=== PATIENT | male | born 1990 | race African-American/Black ===

== ENCOUNTER 2020-12-30 13:13 | Emergency (ER) | payer OTHER ==
[~2020-12-30] VITALS: Ht 200.7 cm; Wt 97.0 kg
[2020-12-30] MEDS ORDERED: ONDANSETRON 4MG ODT PO STA (13:31)
[2020-12-30] MEDS ORDERED: MAGNESIUM/ALUMINUM HYDROXIDE/SIMETHICONE 30ML UDC PO STA (13:31)
[2020-12-30] MEDS ORDERED: FAMOTIDINE 20MG TABLET PO ONE (13:45)
[2020-12-30 14:07] LABS: BASOPHILS % 0.4 % (0.0-2.0); EOSINOPHILS % 0.1 % (0.0-5.0); HEMATOCRIT. 49.4 % (42.0-52.0); HEMOGLOBIN. 17.1 g/dL (14.0-18.0); LYMPHOCYTES % 12.4 % (20.0-50.0); MEAN CORPUSCULAR HEMOGLOBIN 31.3 pg (28.0-32.0); MEAN CORPUSCULAR VOLUME 90.5 fL (80.0-94.0); MEAN PLATELET VOLUME 8.3 fl (7.4-10.4); MONOCYTES % 9.5 % (2.0-8.0); NEUTROPHILS % 77.6 % (40.0-76.0); PLATELET 227 x1000/uL (130-400); RED BLOOD CELL COUNT 5.46 mill/uL (4.7-6.1); RED CELL DISTRIBUTION WIDTH 14.5 % (11.6-14.6)
[2020-12-30 14:12] LABS: CLARITY URINE CLEAR (CLEAR); COLOR URINE DARK YELLOW (YELLOW); KETONES URINE TRACE (NEGATIVE); LEUKOCYTE ESTERASE URINE NEGATIVE (NEGATIVE); NITRITE URINE NEGATIVE (NEGATIVE); OCCULT BLOOD URINE 2+ (NEGATIVE); PROTEIN URINE 3+ (NEGATIVE); SPECIFIC GRAVITY URINE 1.051 (1.005-1.030); UROBILINOGEN URINE 0.2 E.U./dL (0.2-1.0)
[2020-12-30 14:18] LABS: CHLORIDE 108 mEq/L (98-107)
[2020-12-30 14:28] LABS: *BARBITURATES SCREEN URINE NEGATIVE (NEGATIVE); *BENZODIAZEPINES SCREEN URINE NEGATIVE (NEGATIVE); *COCAINE SCREEN URINE NEGATIVE (NEGATIVE); METHADONE URINE SCREEN NEGATIVE (NEGATIVE); OPIATES URINE SCREEN PRESUMTIVE POSITIVE (NEGATIVE)
[2020-12-30 14:29] LABS: *AMPHETAMINES SCREEN URINE NEGATIVE (NEGATIVE); CANNABINOID URINE SCREEN PRESUMTIVE POSITIVE (NEGATIVE); PHENCYCLIDINE URINE SCREEN NEGATIVE (NEGATIVE)
[2020-12-30] MEDS ORDERED: MORPHINE SULFATE 4 MG/ML CPJ (NOT FOR IM USE) IV STA (14:55)
[2020-12-30] MEDS ORDERED: ONDANSETRON HCL 4MG/2ML INJ IV STA (14:55)
[2020-12-30] MEDS ORDERED: SODIUM CHLORIDE 0.9% 1,000 ML IV ONE (15:00)
[2020-12-30] MEDS ORDERED: ONDA4TAB5 MT (16:41)
[2020-12-30] MEDS ORDERED: SIME125C MT (16:41)
[2020-12-30] MEDS ORDERED: HYDR-4001 MT (16:41)
[2020-12-30] MEDS ORDERED: KETOROLAC 15MG/ML VIAL IM NR (16:45)
[2020-12-30 17:10] VITALS: BP 140/78
== END 2020-12-30 17:10 | disposition home or self-care (01) ==
LOC: ER 13:52
DX: R10.13 Epigastric pain (principal); R31.9 Hematuria, unspecified; R11.2 Nausea with vomiting, unspecified; Z87.19 Personal history of other diseases of the digestive system
CPT/HCPCS: 36415; 74177; 80053; 80305; 81003; 83690; 85025; 93005; 96361; 96372; 96374; 96375; 99285; J1885; J2270; J2405; Q0162

== ENCOUNTER 2021-01-13 01:01 | Emergency (ER) | payer OTHER ==
[~2021-01-13] VITALS: Ht 195.6 cm; Wt 108.0 kg
[~2021-01-13 01:01] MED LIST: HYDR-4001 MT; ONDA4TAB5 MT; SIME125C MT
[2021-01-13 03:44] LABS: BASOPHILS % 0.7 % (0.0-2.0); EOSINOPHILS % 1.9 % (0.0-5.0); HEMATOCRIT. 37.3 % (42.0-52.0); HEMOGLOBIN. 12.8 g/dL (14.0-18.0); LYMPHOCYTES % 30.9 % (20.0-50.0); MEAN CORPUSCULAR HEMOGLOBIN 31.2 pg (28.0-32.0); MEAN CORPUSCULAR VOLUME 90.9 fL (80.0-94.0); MONOCYTES % 8.8 % (2.0-8.0); NEUTROPHILS % 57.7 % (40.0-76.0); RED BLOOD CELL COUNT 4.11 mill/uL (4.7-6.1); RED CELL DISTRIBUTION WIDTH 14.5 % (11.6-14.6)
[2021-01-13 03:51] LABS: CHLORIDE 112 mEq/L (98-107)
[2021-01-13 05:45] VITALS: BP 127/57
== END 2021-01-13 06:01 | disposition home or self-care (01) ==
LOC: ER 01:01
DX: R60.0 Localized edema (principal); I10 Essential (primary) hypertension; F12.10 Cannabis abuse, uncomplicated
CPT/HCPCS: 36415; 80053; 83880; 84443; 84484; 85025; 93970; 99284

== ENCOUNTER 2021-05-24 10:14 | Inpatient (IN) | payer BC, OTHER ==
[~2021-05-24] VITALS: Ht 200.7 cm; Wt 99.8 kg
[2021-05-24] MEDS ORDERED: ONDANSETRON HCL 4MG/2ML INJ IV STA (10:34)
[2021-05-24] MEDS ORDERED: MORPHINE SULFATE 4 MG/ML CPJ (NOT FOR IM USE) IV STA (10:34)
[2021-05-24] MEDS ORDERED: MORPHINE SULFATE 2 MG/ML CPJ (NOT FOR IM USE) IV NR ×2 (11:20→13:15)
[2021-05-24 11:52] LABS: BASOPHILS % 0.6 % (0.0-2.0); HEMATOCRIT. 42.7 % (42.0-52.0); HEMOGLOBIN. 14.9 g/dL (14.0-18.0); LYMPHOCYTES % 9.7 % (20.0-50.0); MEAN CORPUSCULAR HEMOGLOBIN 31.5 pg (28.0-32.0); MEAN PLATELET VOLUME 7.9 fl (7.4-10.4); MONOCYTES % 2.7 % (2.0-8.0); PLATELET 278 x1000/uL (130-400); RED BLOOD CELL COUNT 4.74 mill/uL (4.7-6.1); RED CELL DISTRIBUTION WIDTH 13.7 % (11.6-14.6)
[2021-05-24] MEDS ORDERED: DICYCLOMINE 10 MG/5 ML ORAL SYR PO STA (11:52)
[2021-05-24] MEDS ORDERED: MAGNESIUM/ALUMINUM HYDROXIDE/SIMETHICONE 30ML UDC PO STA (11:52)
[2021-05-24] MEDS ORDERED: VISCOUS LIDOCAINE 2% 15 ML UDC PO STA (11:52)
[2021-05-24 11:59] LABS: CHLORIDE 114 mEq/L (98-107)
[2021-05-24 12:10] LABS: PROTHROMBIN TIME 10.9 sec (9.6-11.0)
[2021-05-24] MEDS ORDERED: ONDA4TAB5 MT (12:40)
[2021-05-24] MEDS ORDERED: TOPUD PO (12:40)
[2021-05-24] MEDS ORDERED: MORPHINE SULFATE 4 MG/ML CPJ (NOT FOR IM USE) IV ONE (13:00)
[2021-05-24] MEDS: DEXT 5%/0.45% NACL 1000ML 1,000 ML IV SCH (17:00)
[2021-05-24] MEDS ORDERED: MAGNESIUM/ALUMINUM HYDROXIDE/SIMETHICONE 30ML UDC PO NR (17:00)
[2021-05-24] MEDS ORDERED: DOCUSATE SODIUM 100MG CAPSULE PO PRN (17:00)
[2021-05-24] MEDS: ONDANSETRON HCL 4MG/2ML INJ IV PRN (18:00)
[2021-05-24] MEDS: PANTOPRAZOLE SODIUM 40 MG/VIAL IV SCH (18:00)
[2021-05-24] MEDS: MORPHINE SULFATE 2 MG/ML CPJ (NOT FOR IM USE) IV PRN (18:01)
[2021-05-24 19:30] LABS: CLARITY URINE CLEAR (CLEAR); COLOR URINE DARK YELLOW (YELLOW); KETONES URINE TRACE (NEGATIVE); LEUKOCYTE ESTERASE URINE TRACE (NEGATIVE); NITRITE URINE NEGATIVE (NEGATIVE); OCCULT BLOOD URINE NEGATIVE (NEGATIVE); PROTEIN URINE 1+ (NEGATIVE); SPECIFIC GRAVITY URINE 1.033 (1.005-1.030)
[2021-05-24 19:45] LABS: *AMPHETAMINES SCREEN URINE NEGATIVE (NEGATIVE); *BARBITURATES SCREEN URINE NEGATIVE (NEGATIVE); *BENZODIAZEPINES SCREEN URINE NEGATIVE (NEGATIVE); *COCAINE SCREEN URINE NEGATIVE (NEGATIVE); METHADONE URINE SCREEN NEGATIVE (NEGATIVE); OPIATES URINE SCREEN PRESUMTIVE POSITIVE (NEGATIVE)
[2021-05-24 19:46] LABS: CANNABINOID URINE SCREEN PRESUMTIVE POSITIVE (NEGATIVE); PHENCYCLIDINE URINE SCREEN NEGATIVE (NEGATIVE)
[2021-05-24 20:00] VITALS: BP 150/73
[2021-05-24 21:20] VITALS: BP 150/73
[2021-05-24] MEDS: ENOXAPARIN 40MG/0.4ML SYR SUBCUT SCH (22:06)
[2021-05-24] MEDS ORDERED: AMLO5TAB88 PO (22:50)
[2021-05-24] MEDS: HYDROCODONE/ACETAMINOPHEN 5/325MG TABLET PO PRN (23:22)
[2021-05-25] MEDS: ONDANSETRON HCL 4MG/2ML INJ IV PRN ×4 (03:29→23:02)
[2021-05-25 04:00] VITALS: BP 158/76
[2021-05-25] MEDS: DEXT 5%/0.45% NACL 1000ML 1,000 ML IV SCH (06:34)
[2021-05-25] MEDS: MORPHINE SULFATE 2 MG/ML CPJ (NOT FOR IM USE) IV PRN ×3 (06:34→20:04)
[2021-05-25 07:21] LABS: BASOPHILS % 0.3 % (0.0-2.0); HEMATOCRIT. 43.4 % (42.0-52.0); HEMOGLOBIN. 14.7 g/dL (14.0-18.0); LYMPHOCYTES % 8.2 % (20.0-50.0); MEAN CORPUSCULAR HEMOGLOBIN 30.3 pg (28.0-32.0); MEAN CORPUSCULAR VOLUME 89.4 fL (80.0-94.0); MEAN PLATELET VOLUME 8.1 fl (7.4-10.4); MONOCYTES % 7.3 % (2.0-8.0); NEUTROPHILS % 84.2 % (40.0-76.0); PLATELET 300 x1000/uL (130-400); RED BLOOD CELL COUNT 4.85 mill/uL (4.7-6.1); RED CELL DISTRIBUTION WIDTH 13.8 % (11.6-14.6)
[2021-05-25 08:00] VITALS: BP 159/86
[2021-05-25 08:16] LABS: CHLORIDE 110 mEq/L (98-107)
[2021-05-25] MEDS: PANTOPRAZOLE SODIUM 40 MG/VIAL IV SCH (10:09)
[2021-05-25 12:00] VITALS: BP 121/75
[2021-05-25] MEDS: LACTOBACILLUS GG CAPSULE PO SCH (15:00)
[2021-05-25 16:00] VITALS: BP 140/74
[2021-05-25] MEDS ORDERED: MAGNESIUM/ALUMINUM HYDROXIDE/SIMETHICONE 30ML UDC PO PRN (19:30)
[2021-05-25 20:00] VITALS: BP 150/68
[2021-05-25] MEDS: ENOXAPARIN 40MG/0.4ML SYR SUBCUT SCH (21:00)
[2021-05-25] MEDS ORDERED: LORAZEPAM 2MG/ML CPJ IV PRN (23:00)
[2021-05-26] VITALS: BP 154/65
[2021-05-26] MEDS: MORPHINE SULFATE 2 MG/ML CPJ (NOT FOR IM USE) IV PRN ×3 (04:31→20:11)
[2021-05-26 04:48] VITALS: BP 133/75
[2021-05-26 05:47] LABS: CHLORIDE 106 mEq/L (98-107)
[2021-05-26 05:48] LABS: BASOPHILS % 0.2 % (0.0-2.0); HEMATOCRIT. 43.5 % (42.0-52.0); HEMOGLOBIN. 14.8 g/dL (14.0-18.0); LYMPHOCYTES % 9.7 % (20.0-50.0); MEAN CORPUSCULAR HEMOGLOBIN 30.5 pg (28.0-32.0); MEAN CORPUSCULAR VOLUME 89.5 fL (80.0-94.0); MEAN PLATELET VOLUME 7.9 fl (7.4-10.4); MONOCYTES % 8.6 % (2.0-8.0); NEUTROPHILS % 81.5 % (40.0-76.0); PLATELET 284 x1000/uL (130-400); RED BLOOD CELL COUNT 4.86 mill/uL (4.7-6.1); RED CELL DISTRIBUTION WIDTH 13.7 % (11.6-14.6)
[2021-05-26 08:00] VITALS: BP 146/83
[2021-05-26] MEDS ORDERED: METOCLOPRAMIDE HCL 10MG/2ML VIAL IV PRN (08:15)
[2021-05-26] MEDS: LACTOBACILLUS GG CAPSULE PO SCH (08:48)
[2021-05-26] MEDS: PANTOPRAZOLE SODIUM 40 MG/VIAL IV SCH (08:48)
[2021-05-26] MEDS: HYDROCODONE/ACETAMINOPHEN 5/325MG TABLET PO PRN (08:49)
[2021-05-26] MEDS ORDERED: ONDA4TAB5 MT (11:45)
[2021-05-26] MEDS ORDERED: OMEP-265 MT (11:45)
[2021-05-26 12:00] VITALS: BP 160/89
[2021-05-26] MEDS: KCL 20MEQ/100ML PREMIX 100 ML IV SCH ×2 (12:30→14:00)
[2021-05-26] MEDS: ONDANSETRON HCL 4MG/2ML INJ IV PRN ×2 (12:30→20:10)
[2021-05-26 16:00] VITALS: BP 141/81
[2021-05-26] MEDS ORDERED: POTASSIUM CHLORIDE 20MEQ TABLET SR PO NR (16:30)
[2021-05-26 20:00] VITALS: BP 128/62
[2021-05-26] MEDS: ENOXAPARIN 40MG/0.4ML SYR SUBCUT SCH ×2 (20:10→20:23)
[2021-05-26] MEDS ORDERED: NALOXONE HCL 0.4MG/ML VIAL IV PRN (22:00)
[2021-05-27] VITALS: BP 153/74
[2021-05-27] MEDS: ONDANSETRON HCL 4MG/2ML INJ IV PRN ×2 (02:32→10:57)
[2021-05-27] MEDS: MORPHINE SULFATE 2 MG/ML CPJ (NOT FOR IM USE) IV PRN (02:32)
[2021-05-27 04:00] VITALS: BP 134/82
[2021-05-27 08:00] VITALS: BP 142/76
[2021-05-27] MEDS: LACTOBACILLUS GG CAPSULE PO SCH (08:27)
[2021-05-27] MEDS: PANTOPRAZOLE SODIUM 40 MG/VIAL IV SCH (08:27)
[2021-05-27 11:05] VITALS: BP 142/76
[2021-05-27 11:30] VITALS: BP 164/103
== END 2021-05-27 11:41 | disposition home or self-care (01) | DRG 392 ==
LOC: ER 10:14 → 6EST 12:59 → ENRESERV 20:08
PROVIDERS: ADMIT Internal Medicine; ATTEND Internal Medicine
DX: K29.70 Gastritis, unspecified, without bleeding (principal); E87.0 Hyperosmolality and hypernatremia; F12.90 Cannabis use, unspecified, uncomplicated; I10 Essential (primary) hypertension; E87.8 Other disorders of electrolyte and fluid balance, not elsewhere classified; Z82.49 Family history of ischemic heart disease and other diseases of the circulatory system; Z79.891 Long term (current) use of opiate analgesic; Z79.899 Other long term (current) drug therapy
CPT/HCPCS: 36415; 71045; 74176; 80048; 80053; 80305; 81003; 85025; 93970; 99285; C9113; J1650; J2060; J2270; J2405; J2765; J3480